=== PATIENT | male | born 1985 | race Caucasian/White ===

== ENCOUNTER → 2018-03-27 | Outpatient (CLI) | payer OTHER ==
--- NOTE | 2018-03-28 09:20 | RADIOLOGY REPORT (SQ) ---
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 RADIONUCLIDE AND DOSE: 10.0 mCi F18 FDG The route of agent administration: Intravenous FASTING BLOOD SUGAR: 95 mg/dl CONTRAST TYPE AND DOSE: No CT contrast given. TECHNIQUE: Blood glucose level was verified. Above dose of FDG was injected intravenously. 2-D seg mented attenuation correction images were obtained from the base of the skull to the midthighs. Nonc ontrast CT images were obtained for attenuation correction and fusion with emission images. CT image s were performed without oral or intravenous contrast and are not sensitive for parenchymal lesions. A series of overlapping emission PET images were obtained. Images reviewed and manipulated at [facility] work station by the radiologist. Images stored on PACS. LIMITATIONS: None. FINDINGS: HEAD AND NECK: Significant improvement. Previously seen adenopathy in the neck and suprac lavicular regions has resolved. Currently no enlarged lymph nodes and no abnormal activity. CHEST: Significant improvement. Previously seen large anterior mediastinal mass has decreased in siz e significantly and only minimal residual soft tissue present. No abnormal activity. Previously see n extensive activity in the mediastinum and hilum and along the pericardium has almost completely res olved. Currently there are only 2 areas of activity corresponding to heavily calcified lymph nodes i n the left hilum and in the subcarinal location. Mean SUV value 2.81 and 3.49 respectively. There h as been interval development of a small left pleural effusion. ABDOMEN AND PELVIS: No areas of abnormal metabolic activity in the abdomen or pelvis. Expected physi ologic activity is present in the genitourinary system and bowel. PROXIMAL LOWER EXTREMITIES: No areas of abnormal metabolic activity in the soft tissues of the lower extremities. BONES: No abnormal metabolic activity in the visualized skeleton. ADDITIONAL CT FINDINGS: No additional significant findings on the noncontrast CT images. OTHER: No other significant findings. Background liver activity mean SUV 1.9. Background blood pool activity mean SUV 1.44. IMPRESSION: 1. SIGNIFICANT IMPROVEMENT. EXTENSIVE ADENOPATHY IN THE NECK AND CHEST AND LARGE ANTERIOR MEDIASTINA L MASS HAVE ALMOST COMPLETELY RESOLVED. CURRENTLY THE ONLY AREAS OF ACTIVITY CORRESPOND TO TWO HEAVI LY CALCIFIED LYMPH NODES IN THE LEFT HILUM AND SUBCARINAL LOCATION. 2. INTERVAL DEVELOPMENT OF A SMALL LEFT PLEURAL EFFUSION. NO OTHER SIGNIFICANT FINDINGS. TECHNICAL DOCUMENTATION: JOB ID: [id number] [employer]- All Rights Reserved Reading location - IP/workstation name: [email or web address]
== END ==
LOC: RAD 15:46
PROVIDERS: ATTEND Internal Medicine Hematology & Oncology
DX: C83.31 Diffuse large B-cell lymphoma, lymph nodes of head, face, and neck (principal); J90 Pleural effusion, not elsewhere classified
CPT/HCPCS: 78815; A9552

== ENCOUNTER → 2018-07-31 | Outpatient (CLI) | payer OTHER ==
--- NOTE | 2018-08-01 13:02 | RADIOLOGY REPORT (SQ) ---
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 TECHNIQUE: Blood glucose level was verified. Above dose of FDG was injected intravenously. 2-D seg mented attenuation correction images were obtained from the base of the skull to the midthighs. Nonc ontrast CT images were obtained for attenuation correction and fusion with emission images. CT image s were performed without oral or intravenous contrast and are not sensitive for parenchymal lesions. A series of overlapping emission PET images were obtained. Images reviewed and manipulated at [facility] work station by the radiologist. Images stored on PACS. LIMITATIONS: None. FINDINGS: HEAD AND NECK: No areas of abnormal metabolic activity in the soft tissues of the head and neck. CHEST: No areas of abnormal metabolic activity in the chest. There is a thin rind of non metabolic a nterior mediastinal soft tissue ventral to the aorta, 5 x 3 cm in size, similar compared to previous studies. ABDOMEN AND PELVIS: No areas of abnormal metabolic activity in the abdomen or pelvis. Expected physi ologic activity is present in the genitourinary system and bowel. PROXIMAL LOWER EXTREMITIES: No areas of abnormal metabolic activity in the soft tissues of the lower extremities. BONES: No abnormal metabolic activity in the visualized skeleton. ADDITIONAL CT FINDINGS: No additional significant findings on the noncontrast CT images. OTHER: Liver background activity 2.0 SUV, blood pool background activity 1.7 SUV IMPRESSION: No residual metabolically active soft tissue worrisome for residual lymphoma TECHNICAL DOCUMENTATION: JOB ID: [id number] [employer]- All Rights Reserved Reading location - IP/workstation name: [email or web address]
== END ==
LOC: RAD 16:42
PROVIDERS: ATTEND Internal Medicine Hematology & Oncology
DX: C83.31 Diffuse large B-cell lymphoma, lymph nodes of head, face, and neck (principal)
CPT/HCPCS: 78815; A9552